=== PATIENT | female | born 1950 | race Caucasian/White ===

== ENCOUNTER → 2023-02-11 | Outpatient (CLI) | payer SELFPAY ==
[2023-02-11 16:12] LABS: BASOPHILS ABSOLUTE AUTO 0.03 K/mm3 (0.00-0.23); BASOPHILS PERCENT AUTO 1 % (0-2); EOSINOPHILS ABSOLUTE AUTO 0.03 K/mm3 (0.00-0.68); EOSINOPHILS PERCENT AUTO 1 % (0-6); Hematocrit 40.4 % (33.0-51.0); Hemoglobin 13.6 g/dL (11.5-16.0); IMMATURE GRAN ABSOLUTE AUTO 0.02 K/mm3 (0.00-0.10); IMMATURE GRAN PERCENT AUTO 0 % (0-1); LYMPHOCYTES ABSOLUTE AUTO 0.74 K/mm3 (0.84-5.20); LYMPHOCYTES PERCENT AUTO 14 % (21-46); MONOCYTES ABSOLUTE AUTO 0.36 K/mm3 (0.16-1.47); MONOCYTES PERCENT AUTO 7 % (4-13); Mean Corpuscular HGB 31.3 pg (26.0-34.0); Mean Corpuscular HGB Conc 33.7 g/dL (31.5-36.5); Mean Corpuscular Volume 93 fL (80-100); Mean Platelet Volume 8.7 fL (9.1-12.4); NEUTROPHILS ABSOLUTE AUTO 4.31 K/mm3 (1.96-9.15); NEUTROPHILS PERCENT AUTO 79 % (41-73); Platelet Count 307 K/mm3 (150-400); RDW Standard Deviation 48.3 fL (35.1-46.3); Red Blood Cell Count 4.34 M/mm3 (3.80-5.20); White Blood Cell Count 5.49 K/mm3 (4.00-11.30)
[2023-02-11 16:18] LABS: Alanine Aminotransfer (ALT/SGP 19 U/L (12-78); Albumin, Blood 3.8 g/dL (3.4-5.0); Albumin/Globulin Ratio 1.5 (0.8-1.8); Alk Phos 63 U/L (50-136); Anion Gap 5 mmol/L (6-16); Aspartate Aminotrans (AST/SGOT 12 U/L (12-37); Bilirubin, Total 0.5 mg/dL (0.1-1.0); Blood Urea Nitrogen 14 mg/dL (8-24); Bun/Creatinine Ratio 18.4 (12.0-20.0); CHOL/HDL RATIO 2.3; CO2, Blood 29 mmol/L (21-32); Calcium, Blood 8.7 mg/dL (8.5-10.1); Chloride, Blood 107 mmol/L (98-108); Cholesterol 202 mg/dL (50-200); Creatinine, Blood 0.76 mg/dL (0.40-1.00); Globulin, Blood 2.6 g/dL (2.2-4.0); Glomerular Filtration Rate 84 (60-); Glucose, Blood 104 mg/dL (70-99); HDL Cholesterol 87 mg/dL (>39); LDL/HDL RATIO 1.2; Low Density Lipoprotein Chol 105 mg/dL (0-110); Potassium, Blood 3.9 mmol/L (3.5-5.5); Sodium, Blood 141 mmol/L (136-145); Total Protein, Blood 6.4 g/dL (6.4-8.2); Triglycerides 51 mg/dL (30-160); Very Low Density Lipoprot Chol 10 mg/dL (6-32)
[2023-02-13 06:11] LABS: HEMOGLOBIN A1C 5.3 % (4.8-5.6)
== END | disposition home or self-care (01) ==
LOC: LAB SHORT 11:37
PROVIDERS: Family Medicine
DX: Z13.1 Encounter for screening for diabetes mellitus (principal); Z13.6 Encounter for screening for cardiovascular disorders
CPT/HCPCS: 80053; 80061; 83036; 85025

== ENCOUNTER 2023-05-02 15:10 | Emergency (ER) | payer OTHER, MEDICARE ==
[~2023-05-02] VITALS: Ht 165.1 cm; Wt 56.7 kg
[2023-05-02 15:35] VITALS: BP 161/88
[2023-05-02] MEDS ORDERED: CEPH500 PO (19:09)
== END 2023-05-02 19:15 | disposition home or self-care (01) ==
LOC: ER 15:10
DX: S61.411A Laceration without foreign body of right hand, initial encounter (principal); W54.1XXA Struck by dog, initial encounter; Z23 Encounter for immunization; Z88.5 Allergy status to narcotic agent
CPT/HCPCS: 12002; 90471; 90715; 99282-25; A9270; L3917

== ENCOUNTER 2024-05-14 09:14 | Day surgery (SDC) | payer MEDICARE, OTHER ==
[~2024-05-14] VITALS: Ht 165.1 cm; Wt 54.3 kg
[~2024-05-14 09:14] MED LIST: CEPH500 PO; Lactated Ringer's 1,000 ML IV ONE
[2024-05-14] MEDS ORDERED: CeFAZolin Sodium 2,000 MG VIAL ONE (09:55)
[2024-05-14] MEDS ORDERED: NS 50 ML IV ONE (09:56)
[2024-05-14] MEDS ORDERED: Ropivacaine 0.5% HCL/PF 5 MG/ML 30ML Vial ONE (10:01)
[2024-05-14] MEDS ORDERED: ESCI10 PO (10:24)
[2024-05-14] MEDS ORDERED: ASCO500 PO (10:36)
[2024-05-14] MEDS ORDERED: Lactated Ringer's 1,000 ML IV ONE ×2 (10:47→12:51)
[2024-05-14] MEDS ORDERED: propofoL 20 ML IV ONE (11:08)
[2024-05-14] MEDS ORDERED: FentaNYL Citrate 50 MCG/ML 2 ML Injection IV ONE (11:08)
[2024-05-14] MEDS ORDERED: Ondansetron HCl 2 MG / ML 2ML Vial IV ONE (11:08)
[2024-05-14] MEDS ORDERED: Dexamethasone Sod Phos 10 MG/ML 1ML VIAL IV ONE (11:08)
--- NOTE | 2024-05-14 11:13 | NUR ---
05/14/24 1113 Escamilla Karina PATIENT HAD A SMALL SECTION OF A NICODERM PATCH IN HER MOUTH WHEN SHE WAS BROUGHT BACK TO [facility]. STATES SHE TAKES A NICODERM PATCH AND CUTS IT IN TO SMALL PIECES AND WILL SUCK ON THE PATCH TO HELP WITH NICOTINE CRAVING. REPORTED ABOVE INFO TO DR CAZARES AND HE STATED NO PROBLEMS. PT DID REMOVE PATCH FROM MOUTH AND IT WAS PLACED IN THE TRASH.
[2024-05-14] MEDS ORDERED: Midazolam HCl 1MG / ML 2ML Vial ONE (11:53)
[2024-05-14] MEDS ORDERED: Methylene Blue 1% 100 MG/10 ML VIAL XX ONE (12:22)
[2024-05-14] MEDS ORDERED: ePHEDrine Sulfate 50 MG/ML 1ML Injection IV ONE (12:25)
--- NOTE | 2024-05-14 13:27 | NUR ---
05/14/24 1327 Fer Miller [facility] CALLED TO CONFIRM BREAST MASS HAS ADEEL PLACEMENT.
[2024-05-14] MEDS ORDERED: HYDROcodone 5-APAP 325 TAB ONE (14:11)
[2024-05-14 14:20] VITALS: BP 142/76
--- NOTE | 2024-05-14 14:22 | NUR ---
05/14/24 1422 Sammie Le PT WAS HAVING A 5 OUT OF 10 PAIN TO RIGHT BREAST, THE SURGICAL SITE. 1 HYDROCODONE 5/325 MG PILL GIVEN ORALLY.
== END 2024-05-14 14:33 | disposition home or self-care (01) ==
LOC: NM 09:14 → ORSCSDS 09:14
DX: C50.911 Malignant neoplasm of unspecified site of right female breast (principal); D36.0 Benign neoplasm of lymph nodes; Z17.0 Estrogen receptor positive status [ER+]; K21.9 Gastro-esophageal reflux disease without esophagitis; F41.9 Anxiety disorder, unspecified; F32.A Depression, unspecified; Z87.891 Personal history of nicotine dependence; Z79.899 Other long term (current) drug therapy
CPT/HCPCS: 38792; 76098; 88307; 88342; A9270; A9520; J0690; J1100; J2250; J2405; J2704; J2795; J3010; J7120; Q9968

== ENCOUNTER 2024-07-09 12:53 | Day surgery (SDC) | payer MEDICARE, OTHER ==
[~2024-07-09] VITALS: Ht 165.1 cm; Wt 51.1 kg
[~2024-07-09 12:53] MED LIST changes: +ASCO500 PO; +ESCI10 PO; +propofoL 0 ML IV ONE
[2024-07-09] MEDS ORDERED: propofoL 50 ML IV ONE (14:15)
[2024-07-09] MEDS ORDERED: Lactated Ringer's 1,000 ML IV ONE (14:23)
[2024-07-09 15:48] VITALS: BP 132/67
== END 2024-07-09 15:50 | disposition home or self-care (01) ==
LOC: ORSCSDS 12:53
PROVIDERS: Internal Medicine Gastroenterology
PROC: 0DJD8ZZ Inspection of Lower Intestinal Tract, Via Natural or Artificial Opening Endoscopic (ICD-10-PCS; principal; 2024-07-09 14:00)
PROC: 0DB68ZX Excision of Stomach, Via Natural or Artificial Opening Endoscopic, Diagnostic (ICD-10-PCS; principal; 2024-07-09 14:00)
DX: K21.9 Gastro-esophageal reflux disease without esophagitis (principal); Z86.0101 Personal history of adenomatous and serrated colon polyps; R13.10 Dysphagia, unspecified; K44.9 Diaphragmatic hernia without obstruction or gangrene; R63.4 Abnormal weight loss; K29.70 Gastritis, unspecified, without bleeding; K57.30 Diverticulosis of large intestine without perforation or abscess without bleeding; Z79.899 Other long term (current) drug therapy
CPT/HCPCS: 88305; 88342; J2704; J7120

== ENCOUNTER → 2024-10-30 | Outpatient (CLI) | payer MEDICARE, OTHER ==
[~2024-10-30] MED LIST changes: -Lactated Ringer's 1,000 ML IV ONE; -propofoL 0 ML IV ONE
== END ==
LOC: LAB 12:02 → LAB SHORT 12:02
DX: R22.1 Localized swelling, mass and lump, neck (principal)
CPT/HCPCS: 88173